=== PATIENT | female | born 1945 | race Caucasian/White ===

== ENCOUNTER 2017-08-06 12:15 | Emergency (ER) | payer MEDICARE ==
[2017-08-06 12:24] VITALS: BP 133/70
--- NOTE | 2017-08-06 13:34 | RAD ---
Indication: Left foot deformity. 3 views of left foot demonstrates presumed dorsal dislocation of the second metatarsal phalangeal joint. No obvious fracture is noted. IMPRESSION: Dorsal dislocation of the second metatarsal phalangeal joint.
[2017-08-06] MEDS ORDERED: Aspirin EC TAB* 325 MG PO ONE (14:10)
--- NOTE | 2017-08-06 14:19 | RAD ---
Indication: Left foot pain. 3 views of left foot demonstrates no fracture. No other bone or joint abnormality is noted. IMPRESSION: No fracture of the left foot
--- NOTE | 2017-08-06 18:41 | ED ---
Cory Turner Tariq, scribed for Uday Decker MD on 08/06/17 at 1234 . Lower Extremity - HPI Summary HPI Summary: A 72 year old female presents to ED s/p left-foot injury. According to the pt, when walking up the stairs she "rolled on stairs" and bend her left foot backwards. As per triage, "Left foot pain, ""rolled on stairs"", denies other injury. Redness and swelling left anterior foot". She states that the pain is mostly in the middle toe area and she cannot put the toe down as it is sticking up. The injury just happened. She also notes that the pain is mild and "not killing her", however per triage, 06/16. She did not take any ibuprofen, however she did put a ice-pack on the injured area. - History of Current Complaint Chief Complaint: EDExtremityLower Stated Complaint: LT FOOT INJURY Time Seen by Provider: 08/06/17 12:22 Hx Obtained From: Patient Mechanism Of Injury: Other - "Bent foot backwards on stairs" Onset/Duration: Still Present Severity Currently: Moderate Pain Intensity: 5 Pain Scale Used: 0-10 Numeric Location: Other - Left foot Associated Signs And Symptoms: Positive: Swelling, Redness Alleviating Factor(s): Ice - Allergies/Home Medications Allergies/Adverse Reactions: Allergies Allergy/AdvReac Type Severity Reaction Status Date / Time rofecoxib [From Vioxx] Allergy Difficulty Verified 08/06/17 12:25 Breathing wheat Allergy Unknown Verified 08/06/17 12:25 Reaction Details PMH/Surg Hx/FS Hx/Imm Hx Endocrine/Hematology History: Denies: Hx Diabetes Cardiovascular History: Denies: Hx Hypertension Musculoskeletal History: Reports: Hx Osteoporosis - Cancer History Hx Chemotherapy: No Hx Radiation Therapy: No - Surgical History Surgery Procedure, Year, and Place: . ECTOPIC SURG Infectious Disease History: No Infectious Disease History: Denies: Traveled Outside the [place] in Last 30 Days - Family History Known Family History: Positive: Other - CHF, Prostate cancer, glaucoma, uterine cancer, dementia, CVA - Social History Alcohol Use: Weekly - Once per week Smoking Status (MU): Former Smoker - Haven't smoked for 30 years. Review of Systems Negative: Fever Positive: Other - Redness and swelling of left foot All Other Systems Reviewed And Are Negative: Yes Physical Exam - Summary Physical Exam Summary: General:well-appearing, no pain distress Skin:warm, color reflects adequate perfusion, dry Head:normal Eyes:EOMI, ANASTACIA ENT:normal Neck:supple, nontender Respiratory:CTA, breath sounds present Cardiovascular:RRR Abdomen:soft, nontender Bowel:present Musculoskeletal:Left-foot toe deformed at MTP joint Neurological:sensory/motor intact, A&O x3 Psychological:affect/mood appropriate Triage Information Reviewed: Yes Vital Signs On Initial Exam: Initial Vitals Temp Pulse Resp BP Pulse Ox 97.3 F 80 16 133/70 96 08/06/17 12:15 08/06/17 12:15 08/06/17 12:15 08/06/17 12:15 08/06/17 12:15 Vital Signs Reviewed: Yes Diagnostics - Vital Signs Vital Signs Temp Pulse Resp BP Pulse Ox 08/06/17 12:15 97.3 F 80 16 133/70 96 - Laboratory Lab Statement: Any lab studies that have been ordered have been reviewed, and results considered in the medical decision making process. - Radiology LEFT FOOT XR Radiology Interpretation Completed By: Radiologist - Dorsal dislocation of the second metatarsal phalangeal joint. ED PHYSICIAN REVIEWED THIS RADIOLOGY REPORT. Re-Evaluation - Re-Evaluation First Eval Re-Evaluation Time: 13:22 Comment: Patient toe was relocated. Order another Left foot XR. No pain meds. Lower Extremity Course/Dx - Course Course Of Treatment: I REDUCED THE 2ND TOE MTP JOINT DISLOCATION. REPEAT X-RAY NORMAL. F/U PMD. - Diagnoses Provider Diagnoses: Dislocation of toe of left foot Discharge - Sign-Out/Discharge Documenting (check all that apply): Discharge/Admit/Transfer - Discharge Plan Condition: Stable Disposition: HOME Referrals: Coral Zhang MD [Primary Care Provider] - Additional Instructions: FOLLOW UP WITH YOUR DOCTOR IF YOUR 2ND TOE DISLOCATION DOES NOT IMPROVE COMPLETELY. ICE AND ELEVATE THE FOOT. USE THE POST OP SHOE NEEDED. GET RECHECKED FOR ANY WORSENING OF YOUR CONDITION OR QUESTIONS OR CONCERNS. - Billing Disposition and Condition Condition: STABLE Disposition: Home The documentation as recorded by the Cory rojas Tariq accurately reflects the service I personally performed and the decisions made by me, Uday Decker MD.
== END 2017-08-06 14:36 | disposition home or self-care (01) ==
LOC: ED 12:15
DX: S93.105A Unspecified dislocation of left toe(s), initial encounter (principal); W22.8XXA Striking against or struck by other objects, initial encounter; Y92.9 Unspecified place or not applicable; R60.0 Localized edema; Z87.891 Personal history of nicotine dependence
CPT/HCPCS: 99282; A9270-GY

== ENCOUNTER 2023-05-11 06:01 | Observation (INO) ==
[2023-05-11] MEDS ORDERED: ceFAZolin 2 GM PREMIX 2 GM/50 ML BAG ONE (06:41)
[2023-05-11] MEDS ORDERED: ROPIVACAINE 5 MG/ML 30 ML BTL (0.5%) ONE (06:49)
[2023-05-11] MEDS ORDERED: Midazolam 5 mg/5 ml VIAL 1 mg/ml 5 ml VIAL (5 mg) ONE (06:49)
[2023-05-11] MEDS ORDERED: fentaNYL 100 mcg/2 ml 50 MCG/ML VIAL ONE ×2 (06:49→07:10)
[2023-05-11] MEDS ORDERED: Famotidine IV 10 MG/ML 2 ml VIAL (20 mg) ONE (07:03)
[2023-05-11] MEDS: Famotidine IV 10 MG/ML 2 ml VIAL (20 mg) IV ONE (07:07)
[2023-05-11] MEDS: Lactated Ringers 1000 ml BAG 1,000 ML IV SCH ×2 (07:08→15:29)
[2023-05-11 07:09] LABS: Rapid COVID-19 Molecular Undetected (Undetected)
[2023-05-11] MEDS ORDERED: Propofol 10 MG/ML 20 ML BTL ONE (07:10)
[2023-05-11] MEDS ORDERED: Phenylephrine IV 10 MG/ML 1 ml VIAL ONE (07:10)
[2023-05-11] MEDS ORDERED: Lidocaine 2% PF 5 ML VIAL ONE (07:10)
[2023-05-11] MEDS ORDERED: Midazolam 2 mg/2 ml VIAL 1 mg/ml 2 ml VIAL (2 mg) ONE (07:10)
[2023-05-11] MEDS ORDERED: Rocuronium 50 mg VIAL 10 mg/ml 5 ml VIAL (50 mg) ONE (07:11)
[2023-05-11] MEDS ORDERED: Vancomycin 1,000 MG VIAL ONE (07:52)
[2023-05-11] MEDS ORDERED: Ondansetron 4 mg VIAL 2 MG/ML 2 ml VIAL ONE (08:55)
[2023-05-11] MEDS ORDERED: Dexamethasone IV 4 MG/ML VIAL 1 ml VIAL ONE (08:55)
[2023-05-11] MEDS ORDERED: Tranexamic Acid 1,000 MG/10 ML SDV ONE (09:11)
[2023-05-11] MEDS ORDERED: Tranexamic Acid 1 GM/100ML BAG 2,000 MG/200 ML BAG IV ONE (09:17)
[2023-05-11] MEDS ORDERED: fentaNYL 100 mcg/2 ml 50 MCG/ML VIAL IV PRN (10:32)
[2023-05-11] MEDS ORDERED: Naloxone 0.4 mg VIAL 0.4 mg/ml 1 ml VIAL IV PRN (10:32)
[2023-05-11] MEDS ORDERED: Ondansetron 4 mg VIAL 2 MG/ML 2 ml VIAL IV PRN (11:55)
[2023-05-11] MEDS ORDERED: Magnesium Hydroxide LIQ 30 ML UDC PO PRN (11:55)
[2023-05-11] MEDS ORDERED: Lactulose 30 ml UDC PO PRN (11:55)
[2023-05-11] MEDS ORDERED: Ondansetron ODT 4 mg TAB 4 MG TAB PO PRN (11:55)
[2023-05-11] MEDS ORDERED: Morphine 2 MG/ML SYRINGE IV PRN (11:55)
[2023-05-11] MEDS: Buffered Lidocaine 1% SYRIN 1 ml INTRADERM ONE (15:32)
[2023-05-11] MEDS: ceFAZolin 1 GM ADVAN 1 GM in NS 0.9% 50 ML 50 ML IVPB SCH (15:36)
[2023-05-11] MEDS: Magnesium Hydroxide LIQ 30 ML UDC PO SCH (21:56)
[2023-05-11] MEDS: Fluticasone NASAL SPRAY 50MCG 16 gm SPRAY BTL BOTH NARES SCH (22:03)
[2023-05-12 06:02] LABS: Hematocrit 33.2 % (35-45); Hemoglobin 11.3 g/dL (11.5-14.3); Platelet Count 279 10^3/uL (150-450)
[2023-05-12 06:23] LABS: Calcium 8.6 mg/dL (8.6-10.3); Creatinine, Serum 0.84 mg/dL (0.51-0.95); eGFR CKD-EPI 70.6 (>60)
[2023-05-12] MEDS: Calcium (OSCAL) 500 mg TAB PO SCH (08:55)
[2023-05-12] MEDS: Vitamin THERAPEUTIC TAB PO SCH (08:55)
[2023-05-12] MEDS: NF: Coenzyme Q10 CAP (NF) 100 MG PO SCH (09:18)
[2023-05-12 09:36] VITALS: BP 116/60
== END 2023-05-12 14:10 | disposition home or self-care (01) ==
LOC: INTOOBSV 06:01 → AA 06:01 → EDSTATUS 09:30 → SSU 14:29
PROVIDERS: ADMIT Orthopaedic Surgery; ATTEND Orthopaedic Surgery